=== PATIENT | female | born 1980 | race Caucasian/White ===

== ENCOUNTER 2025-07-31 10:18 | Emergency (ER) | payer OTHER ==
[~2025-07-31] VITALS: Ht 170.2 cm; Wt 80.0 kg
[2025-07-31 10:22] VITALS: O2SAT 98
[2025-07-31] MEDS ORDERED: LIDOCAINE 5% PATCH TOP SCH (11:15)
[2025-07-31] MEDS: KETOROLAC 15MG/ML VIAL IM ONE (12:27)
[2025-07-31] MEDS: LIDOCAINE 5% PATCH TOP SCH (12:28)
[2025-07-31 12:30] VITALS: BP 145/86; PULSE 71; RESP 16; TEMP 36.8; O2SAT 100
[2025-07-31] MEDS ORDERED: LIDO700A30 TP (12:37)
[2025-07-31] MEDS ORDERED: IBUP-2028 MT (12:37)
== END 2025-07-31 12:53 | disposition home or self-care (01) ==
LOC: ER 10:57
DX: S16.1XXA Strain of muscle, fascia and tendon at neck level, initial encounter (principal); I10 Essential (primary) hypertension; E78.00 Pure hypercholesterolemia, unspecified; E11.9 Type 2 diabetes mellitus without complications; V43.52XA Car driver injured in collision with other type car in traffic accident, initial encounter; Y93.89 Activity, other specified; Y92.410 Unspecified street and highway as the place of occurrence of the external cause; Y99.8 Other external cause status
CPT/HCPCS: 72040; 96372; 99283; J1885; Z7610